=== PATIENT | female | born 1985 | race African-American/Black ===

== ENCOUNTER 2017-05-17 14:37 | Emergency (ER) | payer MEDICARE, MEDICAID ==
[~2017-05-17] VITALS: Ht 160 cm; Wt 96.0 kg
[~2017-05-17 14:37] MED LIST: SYMBICORT; [UNRECOGNIZED DRUG - OTHER]
[2017-05-17 14:50] VITALS: BP 129/75
== END 2017-05-17 18:35 | disposition left against medical advice (07) ==
LOC: ER 15:38
DX: Z53.21 Procedure and treatment not carried out due to patient leaving prior to being seen by health care provider (principal)

== ENCOUNTER 2017-09-07 08:55 | Emergency (ER) | payer MEDICARE, MEDICAID ==
[~2017-09-07] VITALS: Ht 162.6 cm; Wt 77.0 kg
[2017-09-07 08:58] VITALS: BP 111/62
[2017-09-07] MEDS ORDERED: ALBUTEROL (0.083%) 2.5MG/3ML NEB HHN STA ×2 (09:13→10:01)
[2017-09-07] MEDS ORDERED: IPRATROPIUM BROMIDE (0.02%) 0.5MG/2.5ML NEB HHN STA ×2 (09:13→10:01)
[2017-09-07] MEDS ORDERED: DEXAMETHASONE 10 MG/ML VIAL IM ONE (09:15)
[2017-09-07] MEDS ORDERED: METHYLPREDNISOLONE SOD SUCC 125 MG/2 ML VIAL IV STA (09:25)
== END 2017-09-07 12:24 | disposition home or self-care (01) ==
LOC: ER 08:55
DX: J45.901 Unspecified asthma with (acute) exacerbation (principal)
CPT/HCPCS: 94640; 96372; 96374; 99284; J2930; J7611

== ENCOUNTER 2019-11-26 01:47 | Emergency (ER) | payer MEDICARE, MEDICAID ==
[~2019-11-26] VITALS: Ht 165.1 cm; Wt 100.0 kg
[2019-11-26] MEDS ORDERED: BACITRACIN ZINC OINT UDPKT TOP ONE (02:15)
[2019-11-26] MEDS ORDERED: IBUPROFEN 800MG TABLET PO ONE (02:15)
[2019-11-26] MEDS ORDERED: LIDOCAINE HCL/PF 1% 10 MG/ML 5ML VIAL IJ ONE (02:15)
[2019-11-26 02:22] VITALS: BP 124/84
== END 2019-11-26 04:16 | disposition home or self-care (01) ==
LOC: ER 01:47
DX: S91.202A Unspecified open wound of left great toe with damage to nail, initial encounter (principal); J45.909 Unspecified asthma, uncomplicated; X58.XXXA Exposure to other specified factors, initial encounter; Y93.89 Activity, other specified; Y92.018 Other place in single-family (private) house as the place of occurrence of the external cause
CPT/HCPCS: 11730; 99284; J3490

== ENCOUNTER 2021-10-01 04:35 | Emergency (ER) | payer OTHER, MEDICAID ==
[~2021-10-01] VITALS: Ht 167.6 cm; Wt 75.0 kg
[2021-10-01 04:41] VITALS: BP 122/68
== END 2021-10-01 06:35 | disposition left against medical advice (07) ==
LOC: ER 04:35
DX: Z53.21 Procedure and treatment not carried out due to patient leaving prior to being seen by health care provider (principal)